=== PATIENT | male | born 1945 | race Caucasian/White ===

== ENCOUNTER → 2018-04-08 | Outpatient (CLI) | payer OTHER ==
[~2018-04-08] MED LIST: MULTIVITAMIN W1 EAC5 PO
== END ==
LOC: M.CT 12:56 → EDBD 12:56 → M.CT 13:00
DX: Z13.6 Encounter for screening for cardiovascular disorders (principal); E78.5 Hyperlipidemia, unspecified

== ENCOUNTER 2020-01-29 11:24 | Emergency (ER) | payer MEDICARE ==
[~2020-01-29] VITALS: Ht 180.3 cm; Wt 68.0 kg
[2020-01-29] MEDS ORDERED: PROSCAR 5MG TABL5 M1 PO (11:47)
[2020-01-29 12:00] LABS: ABSOLUTE MONOCYTES 0.5 thou/uL (0.0-1.2); ABSOLUTE NEUTROPHILS 2.8 thou/uL (1.6-8.1); BASOPHILS 0.5 %; EOSINOPHILS 0.1 %; HEMATOCRIT 37.3 % (42.0-52.0); HEMOGLOBIN 13.1 gm/dL (14.0-18.0); LYMPHOCYTES 21.9 %; MCH 30.7 pg (26.0-34.0); MCHC 35.2 g/dL (28.0-37.0); MCV 87.3 fL (80.0-100.0); MONOCYTES 12.1 %; MPV 7.9 fl. (7.2-11.1); NUCLEATED RBCS 0 /100WBC; PLATELET COUNT* 164 thou/uL (150-400); POLYS 65.4 %; RBC 4.27 mil/uL (4.50-6.00); RDW-CV 12.9 % (10.5-14.5); WBC 4.3 thou/uL (4.0-11.0)
[2020-01-29 12:06] LABS: CALCIUM 8.4 mg/dL (8.5-10.1); POTASSIUM 3.8 mmol/L (3.5-5.1)
[2020-01-29 12:10] LABS: ALBUMIN 3.6 g/dL (3.4-5.0); TOTAL BILIRUBIN 0.8 mg/dL (<0.1-1.0); TOTAL PROTEIN 7.6 g/dL (6.4-8.2)
[2020-01-29 12:28] LABS: URINE BLOOD NEGATIVE (Negative); URINE CLARITY CLEAR; URINE COLOR YELLOW; URINE GLUCOSE-RANDOM NEGATIVE (Negative); URINE KETONES 2+ (Negative); URINE LEUKOCYTES-REFLEX NEGATIVE (Negative); URINE NITRITE-REFLEX NEGATIVE (Negative); URINE PROTEIN TRACE (Negative); URINE SPECIFIC GRAVITY >= 1.030 (1.005-1.030); URINE UROBILINOGEN 0.2 E.U./dl (0.2-1.0)
[2020-01-29 12:29] LABS: ICTOTEST (BILI CONFIRMATORY) Negative (Negative); URINE BILIRUBIN 1+ (Negative)
[2020-01-29 12:49] LABS: INFLUENZA A ANTIGEN Negative (Negative)
[2020-01-29] MEDS ORDERED: ONDANSETRON HCL4 M2 PO ×2 (13:38→13:46)
[2020-01-29] MEDS ORDERED: BENTYL 20 MG TA20 M1 PO (13:46)
[2020-01-29 14:09] VITALS: BP 128/62
--- NOTE | 2020-01-29 15:24 | EKG ---
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: [facility] : 1945 Requested By: Glenna Barrera Order Number: [id number] MD: Brandon Bello Measurements Intervals [place] Rate: 62 P: 25 NM: 150 QRS: 46 QRSD: 108 T: 52 QT: 416 QTc: 423 Interpretive Statements Sinus rhythm RSR' in V1 or V2, right VCD or RVH Baseline wander in lead(s) I,II,aVR,V4 Compared to ECG 12/13/2009 15:08:11 RSR' in V1 or V2 now present Electronically Signed On 01-29-2020 15:23:36 CDT by Brandon Bello [email or web address] <ELECTRONICALLY SIGNED> By: Brandon Bello MD, FAC 01/29/20 1523 1227 1227 Brandon Bello MD, FAC /EPI
== END 2020-01-29 14:10 | disposition home or self-care (01) ==
LOC: M.ERS 11:24
PROVIDERS: Nurse Practitioner Family
DX: J10.1 Influenza due to other identified influenza virus with other respiratory manifestations (principal); R11.2 Nausea with vomiting, unspecified; Z90.49 Acquired absence of other specified parts of digestive tract